=== PATIENT | female | born 1940 | race African-American/Black ===

== ENCOUNTER 2019-04-28 15:12 | Inpatient (IN) | payer OTHER ==
[2019-04-28] MEDS ORDERED: Dextrose 5% in Water 1,000 ML IV PRN (20:41)
[2019-04-28] MEDS ORDERED: Dextrose 50% Abboject 50 ML SYRINGE SLOW IVP PRN (20:41)
[2019-04-28] MEDS ORDERED: Lantus 1000 UNITS/10 ML VIAL SC SCH (21:00)
[2019-04-28] MEDS: Vancomycin HCl 1 GM in Sodium Chloride 0.9% 250 ML 250 ML IVPB SCH (22:21)
[2019-04-28] MEDS: Metoprolol Tartrate 25 MG TAB PO SCH (22:22)
[2019-04-28] MEDS: Lisinopril 5 MG TAB PO SCH (22:22)
[2019-04-28] MEDS: Senokot S 8.6-50 MG TAB PO SCH (22:22)
[2019-04-28] MEDS: Famotidine 20 MG TAB PO SCH (22:23)
[2019-04-29] MEDS ORDERED: Non-Formulary Item 1 EACH (Vancomycin Hcl [Vancomycin Hcl] 1 GM) IVPB SCH (08:00)
[2019-04-29] MEDS: Ferrous Sulfate 325 MG TAB PO SCH (08:46)
[2019-04-29] MEDS: Famotidine 20 MG TAB PO SCH ×2 (08:46→21:50)
[2019-04-29] MEDS: Ascorbic Acid 500 mg Chewable Tablet PO SCH (08:47)
[2019-04-29] MEDS: Aspirin 81 mg Enteric Coated Tablet PO SCH (08:47)
[2019-04-29] MEDS: Folic Acid 1 MG TAB PO SCH (08:47)
[2019-04-29] MEDS: glipiZIDE 5 MG TAB PO SCH (08:48)
[2019-04-29] MEDS: NIFEdipine XL 30 MG TAB PO SCH (08:49)
[2019-04-29] MEDS: Saccharomyces boulardii 250 MG CAP PO SCH (08:50)
[2019-04-29] MEDS: Lisinopril 5 MG TAB PO SCH ×2 (08:50→21:52)
[2019-04-29] MEDS: Multivit, Therapeutic 1 TAB PO SCH (08:50)
[2019-04-29] MEDS: Metoprolol Tartrate 25 MG TAB PO SCH ×2 (08:51→21:51)
[2019-04-29] MEDS: Senokot S 8.6-50 MG TAB PO SCH ×2 (08:52→21:51)
[2019-04-29] MEDS: Lantus 1000 UNITS/10 ML VIAL SC SCH ×2 (08:54→21:52)
[2019-04-29] MEDS: Vancomycin HCl 1 GM in Sodium Chloride 0.9% 250 ML 250 ML IVPB SCH ×2 (10:19→22:15)
[2019-04-29] MEDS ORDERED: HumaLOG 300 UNITS/3 ML VIAL SC PRN ×2 (16:23)
[2019-04-29] MEDS: Acetaminophen 500 MG TAB PO PRN (22:15)
--- NOTE | 2019-04-29 22:55 | HP ---
CHIEF COMPLAINT: Need for IV antibiotics, physical and occupational therapy. HISTORY OF PRESENT ILLNESS: Ms. Jimenez is a 79-year-old female with past medical history of hypertension and diet-controlled diabetes mellitus who presented to [facility] on 04/16/2019 with a complaint of right lower quadrant abdominal pain. She reportedly had an ulcer of her right heel, but had provided wound care for that at home, and subsequently, had noted it to be "healed" about a week prior to the onset of this right lower quadrant abdominal pain, which is essentially why she sought medical attention. The pain was radiating to her back and unrelenting, and she was found to have sepsis, urinary tract infection in the context of the right heel ulcer and uncontrolled diabetes , chronic anemia, and hypertension. Subsequently, the patient had General Surgery Service consultation and debridement of the heel ulcer, which grew MRSA. Her urine culture also grew MRSA and Aerococcus urinae. Infectious Disease and Cardiology were consulted, and she underwent a transesophageal echocardiogram, which showed thickened aortic valve leaflets with a small echogenic mass suggestive of vegetation. She was treated with vancomycin and had a PICC line placed on 04/25 prior to her transfer here. Her plan is to receive IV vancomycin via PICC line with weekly labs at the suggestion of Dr. Barragan through 05/31. In addition, her hospital course was apparently complicated by urinary retention and several voiding trials were performed with ultimately placement of indwelling Islas catheter and will need Urology Service followup as well. The patient denies any complaints today. She denies nausea, vomiting, diarrhea , or constipation. She has chronic anemia, for which she takes iron. She did have melanotic appearing stool earlier per nursing, but is on iron therapy. Prior to her admission, per her history and physical, she has not had a colonoscopy in the past, but had a couple of FIT tests that were negative, thus colonoscopy was not indicated. Regarding her diabetes, the patient had a hemoglobin A1c performed during her hospital stay that was 10.1 on 04/16/2019, and she was placed on oral glipizide, Lantus b.i.d. and is to have Accu-Cheks and a sliding scale. Early this morning, the patient's right heel ulcer was evaluated by Wound Care and felt that Nursing Services could perform dressing changes. During her hospital stay, she also had uncontrolled hypertension and her antihypertensive regimen was adjusted. PAST MEDICAL HISTORY: 1. Hypertension. 2. Type-2 diabetes. 3. Chronic venous stasis of the lower extremities. 4. Sepsis with MRSA bacteremia, UTI, and aortic valve endocarditis, this admission. 5. Urinary retention, status post Islas, this admission. 6. Right heel ulcer, status post debridement, this admission. PAST SURGICAL HISTORY: Denies history of prior surgery. SOCIAL HISTORY: Denies alcohol or illicit drug use. 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 She is followed by primary care physician, Dr. Johnson, in [place]. She ambulates independently prior to admission, although at times does hold on to the soriano for guidance. FAMILY HISTORY: Her mother at the age of 77 and had a history of hypertension. Father at 79 due to old age. Power of district attorney that she would designate is her son, Mr. Carlitos Jimenez. ALLERGIES: NO KNOWN DRUG ALLERGIES. MEDICATIONS: 1. Vitamin C 500 mg p.o. daily. 2. Ecotrin 81 mg p.o. daily. 3. Pepcid 20 mg p.o. b.i.d. 4. Feosol 325 mg p.o. q.a.m. 5. Folvite 1 mg p.o. daily. 6. Glipizide 5 mg p.o. daily a.c. 7. Lantus 10 units subcu b.i.d. 8. Zestril 5 mg p.o. b.i.d. 9. Metoprolol 25 mg p.o. b.i.d. 10. Theragran 1 tab p.o. daily. 11. Procardia XL 60 mg p.o. daily. 12. MiraLAX 17 g p.o. daily p.r.n. constipation. 13. Florastor 250 mg p.o. daily. 14. Senokot-S 2 p.o. b.i.d. 15. Vancomycin 1 g q.12h IV. REVIEW OF SYSTEMS: GENERAL: The patient has not had any recent fever reported. She has had some deconditioning from her hospital stay. HEENT: She is little hard to hearing, but denies any problems with her vision. Her dentition is good. Denies any sore throat, rhinorrhea, postnasal drip, or ear pain. CARDIOVASCULAR: Denies chest pain, palpitations, orthopnea, or PND. RESPIRATORY: Denies shortness of breath, cough, or hemoptysis. ABDOMEN: Denies nausea, vomiting, diarrhea, or constipation. GENITOURINARY: Recent urinary retention with placement of urine Islas, but denies dysuria. No hematuria grossly. HEMATOLOGIC: The patient denies any bleeding. LYMPHATIC: The patient has a history of venous stasis of the lower extremities , but denies any other lymphadenopathy or swelling. PSYCHIATRIC: Denies any history of depression or anxiety. PHYSICAL EXAMINATION: VITAL SIGNS: Temperature 99.4, heart rate 78, blood pressure 134/63, respirations 18, O2 saturation 93% on room air. GENERAL: Well-developed, well-nourished, female, alert and oriented x3, in no acute distress, resting supine in the bed, responsive to questions and appropriate. HEENT: Pupils are equally round and reactive to light and accommodation. Extraocular muscles intact. Nares are patent without discharge. Tongue protrudes in the midline. NECK: Supple without lymphadenopathy, thyromegaly, JVD, or bruit. HEART: Regular rate and rhythm. Normal S1, S2. No murmurs, clicks, rubs, or gallops. LUNGS: Clear to auscultation with good air entry bilaterally. No crackles or wheezes. ABDOMEN: Positive bowel sounds in all 4 quadrants. Soft, nontender, nondistended. No masses, guarding, or rebound tenderness. PICC line to the right AC dressed without surrounding erythema or induration. EXTREMITIES: No cyanosis or clubbing. Venous stasis changes from mid tibia distally with wrinkling of the skin and the right heel wrapped in Kerlix with [place] overlying that. Per wound photo, an approximate 1.8 cm x 1.8 cm wound with surrounding callus to the plantar aspect of the right heel. Nails are dystrophic and elongated bilaterally. SKIN: A very small laceration vs. skin tear at the left pubic bone without surrounding erythema or induration, small amount of skin breakdown at the left abdominal fold, and in the supra-gluteal cleft, see photo for details. LABORATORY DATA: CBC last performed on 04/27: White count 10.8 with 72% neutrophils and 15% lymphocytes, hemoglobin 10.4, hematocrit 32.4, platelets 505. ESR on 04/27 was 130. Hemoglobin A1c on 04/16/2019 was 10.1. On 04/27; sodium 139, potassium 4.4, chloride 103, bicarb 26, BUN 14, creatinine 0.67, glucose 134, calcium 9.6. On 04/16/2019; serum iron 12, which is low; TIBC 266, which is normal; ferritin 195, which is normal. LFTs normal on 04/27. CRP on 04/27 was 11.2. On 04/26; total cholesterol 138, LDL 83, HDL 39, triglycerides 80, B12 of 482, folate 5.3, which is low. Vancomycin trough on 04/27 was 18.2. MICROBIOLOGY DATA: 1. Blood culture from 04/16 from the neck with gram-positive cocci in clusters per the Gram stain. Organism-1 MRSA 2/2 culture sets drawn positive and organism-2 Aerococcus urinae 1/2 culture sets positive. 2. Venous blood right hand culture from 04/16; MRSA 2/2 culture sets positive, sensitive to clindamycin, doxycycline, gentamicin, linezolid, rifampin, tetracycline, Bactrim, vancomycin. 3. Urine culture from 04/16/2019 with MRSA 25 to 50,000 CFU/mL and Aerococcus urinae greater than 100,000 CFU/mL with same sensitivities on the MRSA. 4. Blood culture on 04/17 shows gram-positive cocci in clusters. Organism-1 Staph aureus 2/2 culture sets positive. IMAGING DATA: 1. Chest x-ray on 04/16 with cardiomegaly. 2. Foot x-ray on 04/16, normal. 3. ECG on 04/16, normal sinus rhythm, possible left atrial enlargement, nonspecific ST abnormality. 4. Bilateral lower extremity venous Doppler, negative for DVT on 04/17. 5. Echocardiogram on 04/17; left ventricular ejection fraction 55% to 60% with E/A flow reversal suggestive of diastolic dysfunction. Left atrium mildly dilated. Mild MR. Mildly thickened trileaflet aortic valve with normal excursion. Mild TR. Normal pulmonary artery pressure. 6. On 04/18; arterial Doppler lower extremity with anterior tibial artery not identified in either extremity, which could indicate occlusion bilaterally. Evidence of moderate peripheral vascular disease. 7. Lower extremity MRI on 04/20 with heel ulceration with associated surrounding cellulitis. No large drainable fluid collection is evident. No overt changes of osteomyelitis demonstrated. Subcutaneous emphysema of the lower extremity and foot may reflect lymphedema or changes of cellulitis. Increased T2 signal involving the musculature of the extensor digitorum longus and FHL may be related to the patient's edema or may be related to myositis. Denervation atrophy involving the intrinsic foot musculature on the right. Achilles tendinosis. Thickening of the plantar fascial band and enthesopathic change of the plantar calcaneus suspicious for changes of mild plantar fasciitis. ASSESSMENT AND PLAN: 1. Sepsis/methicillin-resistant Staphylococcus aureus bacteremia and urinary tract infection, aortic valve endocarditis. The patient has been admitted for custodial physical and occupational therapy for deconditioning and prolonged hospital stay with PICC line care and IV vancomycin to be continued through 05/31 with weekly labs. We will fax those to Dr. Barragan for his review. We will have Pharmacy to monitor vancomycin trough and adjust dose p.r.n. We will add Floranex probiotic. 2. Right heel ulcer. Wound Care has evaluated and nursing will perform dressing changes and local wound care. 3. Dystrophic nails. We will get a Podiatry consult while the patient is here. 4. Urinary retention. We will perform Islas care per protocol and have the patient to follow up with the Urology Service as outpatient. 5. Hypertension. The patient's antihypertensive regimen will be continued and adjusted as needed with a goal blood pressure of less than 140/90 due to history of diabetes. 6. Type-2 diabetes. The patient's insulin and oral regimen have been continued. Accu-Cheks have been ordered q.a.c. and at bedtime with 1800-calorie con-carb diet and sliding scale mild in bedtime algorithm. 7. Diastolic dysfunction. The patient is currently on [place] inhibitor and beta-shirin. 8. Melanotic stool. This is likely due to her iron, and we will continue this supplementation and just monitor her H&H. 9. Folate deficiency. The patient's folic acid supplement will be continued while hospitalized. 10. Iron-deficiency anemia. The patient's iron will be continued while hospitalized. 11. Probable peripheral arterial disease per arterial Doppler studies. The patient is currently on aspirin. She did have lipid profile performed, but did not get started on statin therapy presumably secondary to age greater than 75. 12. Prophylaxis. SCDs will be placed, and the patient is currently on Pepcid. 13. Full code status. In the event, she is not able to make her own decisions. She designates her son, Carlitos, as her decision maker. Job ID: [id number] [facility]
[2019-04-30] MEDS: Acetaminophen 500 MG TAB PO PRN ×2 (05:48→13:59)
[2019-04-30] MEDS: Lantus 1000 UNITS/10 ML VIAL SC SCH ×2 (09:16→20:45)
[2019-04-30] MEDS: Lisinopril 5 MG TAB PO SCH ×2 (09:17→20:41)
[2019-04-30] MEDS: Ascorbic Acid 500 mg Chewable Tablet PO SCH (09:17)
[2019-04-30] MEDS: Ferrous Sulfate 325 MG TAB PO SCH (09:17)
[2019-04-30] MEDS: Saccharomyces boulardii 250 MG CAP PO SCH (09:17)
[2019-04-30] MEDS: NIFEdipine XL 30 MG TAB PO SCH (09:21)
[2019-04-30] MEDS: Senokot S 8.6-50 MG TAB PO SCH ×2 (09:21→20:41)
[2019-04-30] MEDS: Aspirin 81 mg Enteric Coated Tablet PO SCH (09:22)
[2019-04-30] MEDS: Famotidine 20 MG TAB PO SCH ×2 (09:22→20:41)
[2019-04-30] MEDS: glipiZIDE 5 MG TAB PO SCH (09:22)
[2019-04-30] MEDS: Metoprolol Tartrate 25 MG TAB PO SCH ×2 (09:22→20:41)
[2019-04-30] MEDS: Folic Acid 1 MG TAB PO SCH (09:22)
[2019-04-30] MEDS: Multivit, Therapeutic 1 TAB PO SCH (09:22)
[2019-04-30 09:33] LABS: Anion Gap 14 mmol/L (10-20); BUN (Urea Nitrogen) 15 mg/dL (9.8-20.1); Calc. Creatinine Clearance 90 mL/min (70-130); Calcium 9.5 mg/dL (7.8-10.44); Carbon Dioxide 26 mmol/L (23-31); Chloride 105 mmol/L (98-107); Estimated GFR-MDRD Greater than 90; Glucose 143 mg/dL (83-110); Potassium 3.6 mmol/L (3.5-5.1); Sodium 141 mmol/L (136-145); Vancomycin, Trough 18.5 ug/mL
[2019-04-30] MEDS: Vancomycin HCl 1 GM in Sodium Chloride 0.9% 250 ML 250 ML IVPB SCH ×2 (10:05→21:02)
[2019-05-01] MEDS: Acetaminophen 500 MG TAB PO PRN ×3 (04:27→13:58)
[2019-05-01] MEDS: Aspirin 81 mg Enteric Coated Tablet PO SCH (08:39)
[2019-05-01] MEDS: glipiZIDE 5 MG TAB PO SCH (08:40)
[2019-05-01] MEDS: NIFEdipine XL 30 MG TAB PO SCH (08:40)
[2019-05-01] MEDS: Senokot S 8.6-50 MG TAB PO SCH ×2 (08:41→20:57)
[2019-05-01] MEDS: Ascorbic Acid 500 mg Chewable Tablet PO SCH (08:41)
[2019-05-01] MEDS: Metoprolol Tartrate 25 MG TAB PO SCH ×2 (08:41→20:56)
[2019-05-01] MEDS: Multivit, Therapeutic 1 TAB PO SCH (08:42)
[2019-05-01] MEDS: Famotidine 20 MG TAB PO SCH ×2 (08:42→20:56)
[2019-05-01] MEDS: Lisinopril 5 MG TAB PO SCH ×2 (08:42→20:57)
[2019-05-01] MEDS: Ferrous Sulfate 325 MG TAB PO SCH (08:42)
[2019-05-01] MEDS: Lantus 1000 UNITS/10 ML VIAL SC SCH ×2 (08:43→20:59)
[2019-05-01] MEDS: Folic Acid 1 MG TAB PO SCH (08:43)
[2019-05-01] MEDS ORDERED: traMADol HCl 50 MG TAB ONE (08:49)
[2019-05-01] MEDS ORDERED: Acetaminophen 325 MG TAB ONE (08:50)
[2019-05-01] MEDS: Vancomycin HCl 1 GM in Sodium Chloride 0.9% 250 ML 250 ML IVPB SCH ×2 (09:50→23:05)
[2019-05-01] MEDS: Saccharomyces boulardii 250 MG CAP PO SCH (09:56)
[2019-05-02] MEDS: Senokot S 8.6-50 MG TAB PO SCH ×2 (09:25→21:27)
[2019-05-02] MEDS: NIFEdipine XL 30 MG TAB PO SCH (09:26)
[2019-05-02] MEDS: Saccharomyces boulardii 250 MG CAP PO SCH (09:26)
[2019-05-02] MEDS: Aspirin 81 mg Enteric Coated Tablet PO SCH (09:26)
[2019-05-02] MEDS: Metoprolol Tartrate 25 MG TAB PO SCH ×2 (09:26→21:27)
[2019-05-02] MEDS: Folic Acid 1 MG TAB PO SCH (09:27)
[2019-05-02] MEDS: Multivit, Therapeutic 1 TAB PO SCH (09:27)
[2019-05-02] MEDS: Lisinopril 5 MG TAB PO SCH ×2 (09:27→21:27)
[2019-05-02] MEDS: Ferrous Sulfate 325 MG TAB PO SCH (09:27)
[2019-05-02] MEDS: glipiZIDE 5 MG TAB PO SCH (09:28)
[2019-05-02] MEDS: Famotidine 20 MG TAB PO SCH ×2 (09:28→21:27)
[2019-05-02] MEDS: Lantus 1000 UNITS/10 ML VIAL SC SCH ×2 (09:28→21:28)
[2019-05-02] MEDS: Ascorbic Acid 500 mg Chewable Tablet PO SCH (09:28)
[2019-05-02] MEDS: Vancomycin HCl 1 GM in Sodium Chloride 0.9% 250 ML 250 ML IVPB SCH ×2 (09:37→21:28)
[2019-05-02] MEDS: Acetaminophen 500 MG TAB PO PRN ×2 (09:45→22:53)
[2019-05-03 00:02] LABS: Chlamydia by PCR Not Detected (NotDetected); GC by PCR Not Detected (NotDetected)
[2019-05-03] MEDS: Lantus 1000 UNITS/10 ML VIAL SC SCH ×2 (08:22→20:27)
[2019-05-03] MEDS: Aspirin 81 mg Enteric Coated Tablet PO SCH (08:24)
[2019-05-03] MEDS: Ascorbic Acid 500 mg Chewable Tablet PO SCH (08:25)
[2019-05-03] MEDS: Saccharomyces boulardii 250 MG CAP PO SCH (08:25)
[2019-05-03] MEDS: Famotidine 20 MG TAB PO SCH ×2 (08:25→20:16)
[2019-05-03] MEDS: NIFEdipine XL 30 MG TAB PO SCH (08:26)
[2019-05-03] MEDS: Senokot S 8.6-50 MG TAB PO SCH ×2 (08:26→20:16)
[2019-05-03] MEDS: glipiZIDE 5 MG TAB PO SCH (08:27)
[2019-05-03] MEDS: Folic Acid 1 MG TAB PO SCH (08:27)
[2019-05-03] MEDS: Ferrous Sulfate 325 MG TAB PO SCH (08:27)
[2019-05-03] MEDS: Lisinopril 5 MG TAB PO SCH ×2 (08:27→20:16)
[2019-05-03] MEDS: Multivit, Therapeutic 1 TAB PO SCH (08:27)
[2019-05-03] MEDS: Metoprolol Tartrate 25 MG TAB PO SCH ×2 (08:27→20:16)
[2019-05-03 09:31] LABS: Vancomycin, Trough 22.9 ug/mL
[2019-05-03] MEDS: Vancomycin HCl 750 MG in Sodium Chloride 0.9% 250 ML 250 ML IVPB SCH ×2 (11:05→23:11)
[2019-05-03] MEDS: Acetaminophen 500 MG TAB PO PRN ×2 (11:26→23:39)
[2019-05-03] MEDS: Vancomycin HCl 1 GM in Sodium Chloride 0.9% 250 ML 250 ML IVPB SCH (11:29)
[2019-05-04 06:34] LABS: ALT (SGPT) 23 U/L (8-55); AST (SGOT) 20 U/L (5-34); Alkaline Phosphatase 96 U/L (40-150); Anion Gap 14 mmol/L (10-20); BUN (Urea Nitrogen) 9 mg/dL (9.8-20.1); Bilirubin, Total 0.4 mg/dL (0.2-1.2); Calc. Creatinine Clearance 97 mL/min (70-130); Calcium 9.5 mg/dL (7.8-10.44); Carbon Dioxide 26 mmol/L (23-31); Chloride 107 mmol/L (98-107); Estimated GFR-MDRD Greater than 90; Globulin 3.7 g/dL (2.4-3.5); Glucose 92 mg/dL (83-110); Potassium 3.7 mmol/L (3.5-5.1); Protein, Total 6.7 g/dL (6.0-8.3); Sodium 143 mmol/L (136-145)
[2019-05-04 06:44] LABS: Anisocytosis SLIGHT = 6-15 cells (100X) (0-5/hpf); Eosinophils 5 % (0-10); Hypochromia SLIGHT = 6-15 cells (100X) (0-5/hpf); Lymphocytes 20 % (21-51); MDiff Complete? YES; Mean Corpuscular HGB CONC 30.3 g/dL (32.0-36.0); Mean Corpuscular Hemoglobin 22.5 pg (27.0-31.0); Mean Corpuscular Volume 74.3 fL (78.0-98.0); Microcytosis SLIGHT = 6-15 cells (100X) (0-5/hpf); Monocytes 7 % (0-10); Neutrophil 68 % (42-75); Platelet Count 436 thou/uL (130-400); Platelet Morphology Comment Appears Increased; RBC Distribution Width 14.5 % (11.5-14.5); Red Blood Cell (RBC) Count 3.98 mill/uL (4.20-5.40); White Blood Cell (WBC) Count 7.2 thou/uL (4.8-10.8)
[2019-05-04] MEDS: Lisinopril 5 MG TAB PO SCH ×2 (09:21→21:10)
[2019-05-04] MEDS: Ascorbic Acid 500 mg Chewable Tablet PO SCH (09:22)
[2019-05-04] MEDS: NIFEdipine XL 30 MG TAB PO SCH (09:22)
[2019-05-04] MEDS: Multivit, Therapeutic 1 TAB PO SCH (09:24)
[2019-05-04] MEDS: Aspirin 81 mg Enteric Coated Tablet PO SCH (09:24)
[2019-05-04] MEDS: Metoprolol Tartrate 25 MG TAB PO SCH ×2 (09:24→21:11)
[2019-05-04] MEDS: glipiZIDE 5 MG TAB PO SCH (09:24)
[2019-05-04] MEDS: Senokot S 8.6-50 MG TAB PO SCH ×2 (09:24→21:11)
[2019-05-04] MEDS: Ferrous Sulfate 325 MG TAB PO SCH (09:24)
[2019-05-04] MEDS: Saccharomyces boulardii 250 MG CAP PO SCH (09:24)
[2019-05-04] MEDS: Famotidine 20 MG TAB PO SCH ×2 (09:24→21:10)
[2019-05-04] MEDS: Lantus 1000 UNITS/10 ML VIAL SC SCH ×2 (09:27→21:10)
[2019-05-04] MEDS: Folic Acid 1 MG TAB PO SCH (09:29)
[2019-05-04] MEDS: Acetaminophen 500 MG TAB PO PRN (09:36)
[2019-05-04] MEDS: Vancomycin HCl 750 MG in Sodium Chloride 0.9% 250 ML 250 ML IVPB SCH ×2 (11:22→22:50)
[2019-05-04 19:46] LABS: CRP (Inflammatory) 10.38 mg/dL (= or < 0.5)
[2019-05-04 22:25] LABS: Vancomycin, Trough 18.1 ug/mL
[2019-05-05] MEDS: Lantus 1000 UNITS/10 ML VIAL SC SCH ×2 (09:41→21:01)
[2019-05-05] MEDS: Saccharomyces boulardii 250 MG CAP PO SCH (09:43)
[2019-05-05] MEDS: NIFEdipine XL 30 MG TAB PO SCH (09:43)
[2019-05-05] MEDS: Multivit, Therapeutic 1 TAB PO SCH (09:44)
[2019-05-05] MEDS: Senokot S 8.6-50 MG TAB PO SCH ×2 (09:44→21:04)
[2019-05-05] MEDS: Ferrous Sulfate 325 MG TAB PO SCH (09:44)
[2019-05-05] MEDS: Famotidine 20 MG TAB PO SCH ×2 (09:44→21:04)
[2019-05-05] MEDS: glipiZIDE 5 MG TAB PO SCH (09:45)
[2019-05-05] MEDS: Metoprolol Tartrate 25 MG TAB PO SCH ×2 (09:45→21:20)
[2019-05-05] MEDS: Lisinopril 5 MG TAB PO SCH ×2 (09:45→21:04)
[2019-05-05] MEDS: Acetaminophen 500 MG TAB PO PRN (09:45)
[2019-05-05] MEDS: Aspirin 81 mg Enteric Coated Tablet PO SCH (09:45)
[2019-05-05] MEDS: Ascorbic Acid 500 mg Chewable Tablet PO SCH (09:45)
[2019-05-05] MEDS: Folic Acid 1 MG TAB PO SCH (09:46)
[2019-05-05] MEDS: Vancomycin HCl 750 MG in Sodium Chloride 0.9% 250 ML 250 ML IVPB SCH ×2 (11:16→22:43)
[2019-05-06] MEDS: Aspirin 81 mg Enteric Coated Tablet PO SCH (09:12)
[2019-05-06] MEDS: Famotidine 20 MG TAB PO SCH ×2 (09:12→21:36)
[2019-05-06] MEDS: Ferrous Sulfate 325 MG TAB PO SCH (09:12)
[2019-05-06] MEDS: glipiZIDE 5 MG TAB PO SCH (09:12)
[2019-05-06] MEDS: Ascorbic Acid 500 mg Chewable Tablet PO SCH (09:12)
[2019-05-06] MEDS: NIFEdipine XL 30 MG TAB PO SCH (09:12)
[2019-05-06] MEDS: Multivit, Therapeutic 1 TAB PO SCH (09:12)
[2019-05-06] MEDS: Saccharomyces boulardii 250 MG CAP PO SCH (09:12)
[2019-05-06] MEDS: Folic Acid 1 MG TAB PO SCH (09:14)
[2019-05-06] MEDS: Lisinopril 5 MG TAB PO SCH ×2 (09:14→21:36)
[2019-05-06] MEDS: Naproxen 500 MG TAB PO SCH ×2 (09:15→17:50)
[2019-05-06] MEDS: Lantus 1000 UNITS/10 ML VIAL SC SCH ×2 (09:15→21:39)
[2019-05-06] MEDS: Senokot S 8.6-50 MG TAB PO SCH ×2 (09:15→21:36)
[2019-05-06] MEDS: Metoprolol Tartrate 25 MG TAB PO SCH ×2 (09:15→21:36)
[2019-05-06 10:13] LABS: Vancomycin, Trough 17.4 ug/mL
[2019-05-06] MEDS: Vancomycin HCl 750 MG in Sodium Chloride 0.9% 250 ML 250 ML IVPB SCH ×2 (10:58→22:40)
[2019-05-06] MEDS: HYDROcodone/Acetaminophen 5/325 mg Tablet PO PRN ×2 (15:41→21:37)
[2019-05-07] MEDS: Ferrous Sulfate 325 MG TAB PO SCH (08:55)
[2019-05-07] MEDS: Multivit, Therapeutic 1 TAB PO SCH (08:56)
[2019-05-07] MEDS: NIFEdipine XL 30 MG TAB PO SCH (08:56)
[2019-05-07] MEDS: glipiZIDE 5 MG TAB PO SCH (08:56)
[2019-05-07] MEDS: Aspirin 81 mg Enteric Coated Tablet PO SCH (08:56)
[2019-05-07] MEDS: Senokot S 8.6-50 MG TAB PO SCH ×2 (08:56→21:07)
[2019-05-07] MEDS: Ascorbic Acid 500 mg Chewable Tablet PO SCH (08:56)
[2019-05-07] MEDS: Folic Acid 1 MG TAB PO SCH (08:56)
[2019-05-07] MEDS: Metoprolol Tartrate 25 MG TAB PO SCH ×2 (08:57→21:07)
[2019-05-07] MEDS: Famotidine 20 MG TAB PO SCH ×2 (08:57→21:07)
[2019-05-07] MEDS: Naproxen 500 MG TAB PO SCH ×2 (08:57→17:42)
[2019-05-07] MEDS: Lisinopril 5 MG TAB PO SCH ×2 (08:57→21:07)
[2019-05-07] MEDS: Saccharomyces boulardii 250 MG CAP PO SCH (08:57)
[2019-05-07] MEDS: Lantus 1000 UNITS/10 ML VIAL SC SCH ×2 (08:58→21:06)
[2019-05-07] MEDS: Vancomycin HCl 750 MG in Sodium Chloride 0.9% 250 ML 250 ML IVPB SCH ×2 (11:19→23:08)
[2019-05-07] MEDS: HYDROcodone/Acetaminophen 5/325 mg Tablet PO PRN (13:08)
[2019-05-07 22:34] LABS: Vancomycin, Trough 18.7 ug/mL
[2019-05-08] MEDS: HYDROcodone/Acetaminophen 5/325 mg Tablet PO PRN ×3 (01:56→23:02)
[2019-05-08] MEDS: Lantus 1000 UNITS/10 ML VIAL SC SCH ×2 (08:58→21:08)
[2019-05-08] MEDS: Saccharomyces boulardii 250 MG CAP PO SCH (08:59)
[2019-05-08] MEDS: Multivit, Therapeutic 1 TAB PO SCH (09:00)
[2019-05-08] MEDS: Folic Acid 1 MG TAB PO SCH (09:00)
[2019-05-08] MEDS: Aspirin 81 mg Enteric Coated Tablet PO SCH (09:00)
[2019-05-08] MEDS: Ascorbic Acid 500 mg Chewable Tablet PO SCH (09:00)
[2019-05-08] MEDS: Famotidine 20 MG TAB PO SCH ×2 (09:00→21:08)
[2019-05-08] MEDS: Senokot S 8.6-50 MG TAB PO SCH ×2 (09:01→21:09)
[2019-05-08] MEDS: Naproxen 500 MG TAB PO SCH ×2 (09:01→16:37)
[2019-05-08] MEDS: Lisinopril 5 MG TAB PO SCH ×2 (09:01→21:09)
[2019-05-08] MEDS: NIFEdipine XL 30 MG TAB PO SCH (09:02)
[2019-05-08] MEDS: glipiZIDE 5 MG TAB PO SCH (09:02)
[2019-05-08] MEDS: Metoprolol Tartrate 25 MG TAB PO SCH ×2 (09:02→21:11)
[2019-05-08] MEDS: Ferrous Sulfate 325 MG TAB PO SCH (09:02)
[2019-05-08] MEDS: Vancomycin HCl 750 MG in Sodium Chloride 0.9% 250 ML 250 ML IVPB SCH ×2 (11:10→23:04)
[2019-05-09] MEDS: Famotidine 20 MG TAB PO SCH ×2 (09:02→20:28)
[2019-05-09] MEDS: Ferrous Sulfate 325 MG TAB PO SCH (09:02)
[2019-05-09] MEDS: Naproxen 500 MG TAB PO SCH ×2 (09:03→16:49)
[2019-05-09] MEDS: Aspirin 81 mg Enteric Coated Tablet PO SCH (09:03)
[2019-05-09] MEDS: Senokot S 8.6-50 MG TAB PO SCH ×2 (09:03→20:28)
[2019-05-09] MEDS: Saccharomyces boulardii 250 MG CAP PO SCH (09:04)
[2019-05-09] MEDS: Multivit, Therapeutic 1 TAB PO SCH (09:04)
[2019-05-09] MEDS: NIFEdipine XL 30 MG TAB PO SCH (09:05)
[2019-05-09] MEDS: Folic Acid 1 MG TAB PO SCH (09:05)
[2019-05-09] MEDS: glipiZIDE 5 MG TAB PO SCH (09:05)
[2019-05-09] MEDS: Ascorbic Acid 500 mg Chewable Tablet PO SCH (09:05)
[2019-05-09] MEDS: Metoprolol Tartrate 25 MG TAB PO SCH ×2 (09:06→20:30)
[2019-05-09] MEDS: Lantus 1000 UNITS/10 ML VIAL SC SCH ×2 (09:06→20:27)
[2019-05-09] MEDS: Lisinopril 5 MG TAB PO SCH (09:06)
[2019-05-09] MEDS: Vancomycin HCl 750 MG in Sodium Chloride 0.9% 250 ML 250 ML IVPB SCH ×2 (11:06→22:28)
[2019-05-09] MEDS: HYDROcodone/Acetaminophen 5/325 mg Tablet PO PRN (13:04)
[2019-05-09] MEDS: Polyethylene Glycol 3350 17 GM Packet PO PRN (20:27)
[2019-05-09] MEDS: Lisinopril 10 MG TAB PO SCH (20:28)
[2019-05-10] MEDS: Ferrous Sulfate 325 MG TAB PO SCH (07:40)
[2019-05-10] MEDS: Naproxen 500 MG TAB PO SCH ×2 (07:40→17:37)
[2019-05-10] MEDS: glipiZIDE 5 MG TAB PO SCH (07:40)
[2019-05-10] MEDS: Folic Acid 1 MG TAB PO SCH (08:52)
[2019-05-10] MEDS: Saccharomyces boulardii 250 MG CAP PO SCH (08:52)
[2019-05-10] MEDS: Famotidine 20 MG TAB PO SCH ×2 (08:52→20:08)
[2019-05-10] MEDS: Ascorbic Acid 500 mg Chewable Tablet PO SCH (08:52)
[2019-05-10] MEDS: Senokot S 8.6-50 MG TAB PO SCH ×2 (08:53→20:08)
[2019-05-10] MEDS: Aspirin 81 mg Enteric Coated Tablet PO SCH (08:53)
[2019-05-10] MEDS: Lisinopril 10 MG TAB PO SCH ×2 (08:53→20:08)
[2019-05-10] MEDS: Multivit, Therapeutic 1 TAB PO SCH (08:53)
[2019-05-10] MEDS: NIFEdipine XL 30 MG TAB PO SCH (08:54)
[2019-05-10] MEDS: Metoprolol Tartrate 25 MG TAB PO SCH ×2 (08:54→20:08)
[2019-05-10] MEDS: Lantus 1000 UNITS/10 ML VIAL SC SCH ×2 (08:54→20:10)
[2019-05-10] MEDS: Vancomycin HCl 750 MG in Sodium Chloride 0.9% 250 ML 250 ML IVPB SCH ×2 (11:05→23:00)
[2019-05-10] MEDS: HYDROcodone/Acetaminophen 5/325 mg Tablet PO PRN (13:35)
[2019-05-10] MEDS ORDERED: Vancomycin HCl 750 MG VIAL ONE (22:27)
[2019-05-11] MEDS ORDERED: Aspirin 81 mg Enteric Coated Tablet ONE (07:29)
[2019-05-11] MEDS ORDERED: Ferrous Sulfate 325 MG TAB ONE (07:30)
[2019-05-11] MEDS ORDERED: Saccharomyces boulardii 250 MG CAP ONE (07:30)
[2019-05-11] MEDS ORDERED: Folic Acid 1 MG TAB ONE (07:32)
[2019-05-11] MEDS ORDERED: glipiZIDE 5 MG TAB ONE (07:32)
[2019-05-11] MEDS ORDERED: Metoprolol Tartrate 25 MG TAB ONE (07:34)
[2019-05-11] MEDS ORDERED: Famotidine 20 MG TAB ONE (07:35)
[2019-05-11] MEDS ORDERED: NIFEdipine XL 30 MG TAB ONE (07:35)
[2019-05-11] MEDS ORDERED: Naproxen 500 MG TAB ONE (07:35)
[2019-05-11] MEDS ORDERED: Senokot S 8.6-50 MG TAB ONE (07:36)
[2019-05-11] MEDS ORDERED: Multivit, Therapeutic 1 TAB ONE (07:37)
[2019-05-11] MEDS ORDERED: Ascorbic Acid 500 mg Chewable Tablet ONE (07:37)
[2019-05-11] MEDS ORDERED: Lisinopril 20 MG TAB ONE (07:39)
[2019-05-11] MEDS: Lisinopril 10 MG TAB PO SCH ×2 (08:30→21:31)
[2019-05-11] MEDS: Lantus 1000 UNITS/10 ML VIAL SC SCH ×2 (08:40→21:32)
[2019-05-11] MEDS: Famotidine 20 MG TAB PO SCH ×2 (08:42→21:31)
[2019-05-11] MEDS: glipiZIDE 5 MG TAB PO SCH (08:43)
[2019-05-11] MEDS: Saccharomyces boulardii 250 MG CAP PO SCH (08:43)
[2019-05-11] MEDS: Folic Acid 1 MG TAB PO SCH (08:43)
[2019-05-11] MEDS: Metoprolol Tartrate 25 MG TAB PO SCH ×2 (08:43→21:32)
[2019-05-11] MEDS: Ascorbic Acid 500 mg Chewable Tablet PO SCH (08:43)
[2019-05-11] MEDS: HYDROcodone/Acetaminophen 5/325 mg Tablet PO PRN (08:44)
[2019-05-11] MEDS: NIFEdipine XL 30 MG TAB PO SCH (08:45)
[2019-05-11] MEDS: Multivit, Therapeutic 1 TAB PO SCH (08:45)
[2019-05-11] MEDS: Ferrous Sulfate 325 MG TAB PO SCH (08:46)
[2019-05-11] MEDS: Naproxen 500 MG TAB PO SCH ×2 (08:46→17:14)
[2019-05-11] MEDS: Aspirin 81 mg Enteric Coated Tablet PO SCH (08:46)
[2019-05-11] MEDS: Senokot S 8.6-50 MG TAB PO SCH ×2 (08:46→21:32)
[2019-05-11 08:48] LABS: Anion Gap 14 mmol/L (10-20); BUN (Urea Nitrogen) 12 mg/dL (9.8-20.1); Bilirubin, Total 0.3 mg/dL (0.2-1.2); Calc. Creatinine Clearance 98 mL/min (70-130); Calcium 9.7 mg/dL (7.8-10.44); Carbon Dioxide 25 mmol/L (23-31); Chloride 108 mmol/L (98-107); Estimated GFR-MDRD Greater than 90; Glucose 82 mg/dL (83-110); Potassium 3.8 mmol/L (3.5-5.1); Sodium 143 mmol/L (136-145)
[2019-05-11 08:49] LABS: ALT (SGPT) 38 U/L (8-55); AST (SGOT) 23 U/L (5-34); Albumin 3.1 g/dL (3.4-4.8); Alkaline Phosphatase 170 U/L (40-150); Globulin 3.9 g/dL (2.4-3.5)
[2019-05-11 08:51] LABS: Hemoglobin 9.8 g/dL (12.0-16.0); Mean Corpuscular HGB CONC 30.1 g/dL (32.0-36.0); Mean Corpuscular Hemoglobin 22.5 pg (27.0-31.0); Mean Corpuscular Volume 74.7 fL (78.0-98.0); Red Blood Cell (RBC) Count 4.37 mill/uL (4.20-5.40); White Blood Cell (WBC) Count 3.8 thou/uL (4.8-10.8)
[2019-05-11 08:52] LABS: Band 2 % (5-11); MDiff Complete? YES; Manual Diff?? YES; Mean Platelet Volume 5.9 fL (7.4-10.4); Neutrophil 56 % (42-75); Platelet Count 385 thou/uL (130-400); RBC Distribution Width 15.3 % (11.5-14.5)
[2019-05-11 08:53] LABS: Eosinophils 5 % (0-10); Hypochromia SLIGHT = 6-15 cells (100X) (0-5/hpf); Lymphocytes 21 % (21-51); Microcytosis SLIGHT = 6-15 cells (100X) (0-5/hpf); Monocytes 16 % (0-10)
[2019-05-11] MEDS: Vancomycin HCl 750 MG in Sodium Chloride 0.9% 250 ML 250 ML IVPB SCH ×2 (11:52→23:01)
[2019-05-11] MEDS: Acetaminophen 500 MG TAB PO PRN (13:36)
[2019-05-11] MEDS: Polyethylene Glycol 3350 17 GM Packet PO PRN (21:30)
[2019-05-12 05:57] LABS: CRP (Inflammatory) 10.65 mg/dL (= or < 0.5)
[2019-05-12] MEDS: NIFEdipine XL 30 MG TAB PO SCH (09:14)
[2019-05-12] MEDS: Ascorbic Acid 500 mg Chewable Tablet PO SCH (09:14)
[2019-05-12] MEDS: Naproxen 500 MG TAB PO SCH ×2 (09:14→16:36)
[2019-05-12] MEDS: Senokot S 8.6-50 MG TAB PO SCH ×2 (09:16→20:26)
[2019-05-12] MEDS: Saccharomyces boulardii 250 MG CAP PO SCH (09:16)
[2019-05-12] MEDS: Ferrous Sulfate 325 MG TAB PO SCH (09:16)
[2019-05-12] MEDS: Multivit, Therapeutic 1 TAB PO SCH (09:16)
[2019-05-12] MEDS: Aspirin 81 mg Enteric Coated Tablet PO SCH (09:16)
[2019-05-12] MEDS: Famotidine 20 MG TAB PO SCH ×2 (09:16→20:26)
[2019-05-12] MEDS: HYDROcodone/Acetaminophen 5/325 mg Tablet PO PRN ×2 (09:17→20:24)
[2019-05-12] MEDS: Folic Acid 1 MG TAB PO SCH (09:17)
[2019-05-12] MEDS: glipiZIDE 5 MG TAB PO SCH (09:17)
[2019-05-12] MEDS: Metoprolol Tartrate 25 MG TAB PO SCH ×2 (09:17→20:28)
[2019-05-12] MEDS: Lisinopril 10 MG TAB PO SCH ×2 (09:17→20:27)
[2019-05-12] MEDS: Lantus 1000 UNITS/10 ML VIAL SC SCH ×2 (09:20→20:31)
[2019-05-12] MEDS: Vancomycin HCl 750 MG in Sodium Chloride 0.9% 250 ML 250 ML IVPB SCH ×2 (11:00→23:13)
[2019-05-12] MEDS ORDERED: Bisacodyl 10 MG SUPP PR PRN (12:08)
[2019-05-12] MEDS: Acetaminophen 500 MG TAB PO PRN (14:36)
[2019-05-12] MEDS: Polyethylene Glycol 3350 17 GM Packet PO PRN (20:31)
[2019-05-13] MEDS: glipiZIDE 5 MG TAB PO SCH (07:56)
[2019-05-13] MEDS: Ferrous Sulfate 325 MG TAB PO SCH (07:56)
[2019-05-13] MEDS: Naproxen 500 MG TAB PO SCH ×2 (07:57→16:43)
[2019-05-13] MEDS: HYDROcodone/Acetaminophen 5/325 mg Tablet PO PRN (08:21)
[2019-05-13] MEDS: Lisinopril 10 MG TAB PO SCH ×2 (09:12→20:44)
[2019-05-13] MEDS: NIFEdipine XL 30 MG TAB PO SCH (09:12)
[2019-05-13] MEDS: Aspirin 81 mg Enteric Coated Tablet PO SCH (09:13)
[2019-05-13] MEDS: Saccharomyces boulardii 250 MG CAP PO SCH (09:13)
[2019-05-13] MEDS: Ascorbic Acid 500 mg Chewable Tablet PO SCH (09:13)
[2019-05-13] MEDS: Metoprolol Tartrate 25 MG TAB PO SCH ×2 (09:13→20:44)
[2019-05-13] MEDS: Multivit, Therapeutic 1 TAB PO SCH (09:13)
[2019-05-13] MEDS: Famotidine 20 MG TAB PO SCH ×2 (09:13→20:41)
[2019-05-13] MEDS: Folic Acid 1 MG TAB PO SCH (09:13)
[2019-05-13] MEDS: Senokot S 8.6-50 MG TAB PO SCH ×2 (09:17→20:41)
[2019-05-13] MEDS: Lantus 1000 UNITS/10 ML VIAL SC SCH ×2 (09:20→20:46)
[2019-05-13] MEDS: Vancomycin HCl 750 MG in Sodium Chloride 0.9% 250 ML 250 ML IVPB SCH ×2 (11:29→23:21)
[2019-05-14] MEDS: Naproxen 500 MG TAB PO SCH ×2 (08:07→16:52)
[2019-05-14] MEDS: glipiZIDE 5 MG TAB PO SCH (08:07)
[2019-05-14] MEDS: Ferrous Sulfate 325 MG TAB PO SCH (08:07)
[2019-05-14] MEDS: HYDROcodone/Acetaminophen 5/325 mg Tablet PO PRN ×2 (08:08→21:14)
[2019-05-14] MEDS: Famotidine 20 MG TAB PO SCH ×2 (09:14→21:02)
[2019-05-14] MEDS: NIFEdipine XL 30 MG TAB PO SCH (09:14)
[2019-05-14] MEDS: Multivit, Therapeutic 1 TAB PO SCH (09:14)
[2019-05-14] MEDS: Saccharomyces boulardii 250 MG CAP PO SCH (09:14)
[2019-05-14] MEDS: Ascorbic Acid 500 mg Chewable Tablet PO SCH (09:15)
[2019-05-14] MEDS: Lisinopril 10 MG TAB PO SCH ×2 (09:15→21:03)
[2019-05-14] MEDS: Folic Acid 1 MG TAB PO SCH (09:15)
[2019-05-14] MEDS: Aspirin 81 mg Enteric Coated Tablet PO SCH (09:15)
[2019-05-14] MEDS: Metoprolol Tartrate 25 MG TAB PO SCH ×2 (09:15→21:03)
[2019-05-14] MEDS: Lantus 1000 UNITS/10 ML VIAL SC SCH ×2 (09:30→21:04)
[2019-05-14 10:15] LABS: Vancomycin, Trough 20.5 ug/mL
[2019-05-14] MEDS: Senokot S 8.6-50 MG TAB PO SCH ×2 (11:33→21:02)
[2019-05-14] MEDS: Vancomycin HCl 750 MG in Sodium Chloride 0.9% 250 ML 250 ML IVPB SCH ×2 (11:34→22:28)
[2019-05-14] MEDS: Acetaminophen 500 MG TAB PO PRN (23:10)
[2019-05-15] MEDS: Acetaminophen 500 MG TAB PO PRN (04:57)
[2019-05-15] MEDS: Lantus 1000 UNITS/10 ML VIAL SC SCH ×2 (09:00→20:59)
[2019-05-15] MEDS: Polyethylene Glycol 3350 17 GM Packet PO PRN (09:04)
[2019-05-15] MEDS: Multivit, Therapeutic 1 TAB PO SCH (09:06)
[2019-05-15] MEDS: Ascorbic Acid 500 mg Chewable Tablet PO SCH (09:07)
[2019-05-15] MEDS: Senokot S 8.6-50 MG TAB PO SCH ×2 (09:07→20:58)
[2019-05-15] MEDS: Ferrous Sulfate 325 MG TAB PO SCH (09:07)
[2019-05-15] MEDS: NIFEdipine XL 30 MG TAB PO SCH (09:08)
[2019-05-15] MEDS: HYDROcodone/Acetaminophen 5/325 mg Tablet PO PRN ×2 (09:09→15:55)
[2019-05-15] MEDS: Lisinopril 10 MG TAB PO SCH ×2 (09:10→20:58)
[2019-05-15] MEDS: glipiZIDE 5 MG TAB PO SCH (09:10)
[2019-05-15] MEDS: Naproxen 500 MG TAB PO SCH ×2 (09:11→17:21)
[2019-05-15] MEDS: Famotidine 20 MG TAB PO SCH ×2 (09:11→20:56)
[2019-05-15] MEDS: Saccharomyces boulardii 250 MG CAP PO SCH (09:11)
[2019-05-15] MEDS: Folic Acid 1 MG TAB PO SCH (09:11)
[2019-05-15] MEDS: Metoprolol Tartrate 25 MG TAB PO SCH ×2 (09:12→20:59)
[2019-05-15] MEDS: Aspirin 81 mg Enteric Coated Tablet PO SCH (09:12)
[2019-05-15] MEDS: Vancomycin HCl 750 MG in Sodium Chloride 0.9% 250 ML 250 ML IVPB SCH ×2 (11:29→23:26)
[2019-05-15 22:23] LABS: Vancomycin, Trough 21.8 ug/mL
[2019-05-16] MEDS: HYDROcodone/Acetaminophen 5/325 mg Tablet PO PRN (07:03)
[2019-05-16] MEDS: Lantus 1000 UNITS/10 ML VIAL SC SCH ×2 (08:21→20:51)
[2019-05-16] MEDS: Lisinopril 10 MG TAB PO SCH ×2 (08:23→20:53)
[2019-05-16] MEDS: NIFEdipine XL 30 MG TAB PO SCH (08:23)
[2019-05-16] MEDS: Senokot S 8.6-50 MG TAB PO SCH ×2 (08:23→20:52)
[2019-05-16] MEDS: Multivit, Therapeutic 1 TAB PO SCH (08:24)
[2019-05-16] MEDS: Metoprolol Tartrate 25 MG TAB PO SCH ×2 (08:24→20:53)
[2019-05-16] MEDS: glipiZIDE 5 MG TAB PO SCH (08:24)
[2019-05-16] MEDS: Naproxen 500 MG TAB PO SCH ×2 (08:24→18:04)
[2019-05-16] MEDS: Folic Acid 1 MG TAB PO SCH (08:24)
[2019-05-16] MEDS: Saccharomyces boulardii 250 MG CAP PO SCH (08:24)
[2019-05-16] MEDS: Aspirin 81 mg Enteric Coated Tablet PO SCH (08:24)
[2019-05-16] MEDS: Ferrous Sulfate 325 MG TAB PO SCH (08:25)
[2019-05-16] MEDS: Ascorbic Acid 500 mg Chewable Tablet PO SCH (08:25)
[2019-05-16] MEDS: Famotidine 20 MG TAB PO SCH ×2 (08:25→20:52)
[2019-05-16] MEDS: Polyethylene Glycol 3350 17 GM Packet PO PRN (08:31)
[2019-05-16] MEDS: Vancomycin HCl 750 MG in Sodium Chloride 0.9% 250 ML 250 ML IVPB SCH ×2 (11:58→22:31)
[2019-05-16] MEDS: Acetaminophen ER (8hr) 650 MG TAB PO SCH (20:53)
[2019-05-17] MEDS: HYDROcodone/Acetaminophen 10/325 mg Tablet PO PRN ×2 (06:35→14:17)
[2019-05-17] MEDS: Lantus 1000 UNITS/10 ML VIAL SC SCH ×2 (09:10→22:40)
[2019-05-17] MEDS: Aspirin 81 mg Enteric Coated Tablet PO SCH (09:12)
[2019-05-17] MEDS: Saccharomyces boulardii 250 MG CAP PO SCH (09:12)
[2019-05-17] MEDS: Acetaminophen ER (8hr) 650 MG TAB PO SCH ×2 (09:12→22:39)
[2019-05-17] MEDS: Famotidine 20 MG TAB PO SCH ×2 (09:13→22:40)
[2019-05-17] MEDS: Folic Acid 1 MG TAB PO SCH (09:13)
[2019-05-17] MEDS: NIFEdipine XL 30 MG TAB PO SCH (09:13)
[2019-05-17] MEDS: Senokot S 8.6-50 MG TAB PO SCH ×2 (09:13→22:38)
[2019-05-17] MEDS: Metoprolol Tartrate 25 MG TAB PO SCH ×2 (09:13→22:40)
[2019-05-17] MEDS: Ferrous Sulfate 325 MG TAB PO SCH (09:14)
[2019-05-17] MEDS: Ascorbic Acid 500 mg Chewable Tablet PO SCH (09:15)
[2019-05-17] MEDS: Naproxen 500 MG TAB PO SCH ×2 (09:15→16:31)
[2019-05-17] MEDS: glipiZIDE 5 MG TAB PO SCH (09:15)
[2019-05-17] MEDS: Multivit, Therapeutic 1 TAB PO SCH (09:16)
[2019-05-17] MEDS: Lisinopril 10 MG TAB PO SCH ×2 (09:16→22:39)
[2019-05-17] MEDS: Vancomycin HCl 750 MG in Sodium Chloride 0.9% 250 ML 250 ML IVPB SCH ×2 (11:09→22:59)
--- NOTE | 2019-05-17 22:38 | RAD ---
LUMBAR SPINE 05/17/19 AP and lateral views show no acute fracture or significant disc space narrowing. Anterior osteophytes are seen at many of the levels in the lumbar spine and the low thoracic spine. In the lumbar region, they are particularly prominent at the anterior superior corner of L5. There is a little irregularit y of the superior end plate of L5. Bony ossicles seen at the tips of the spinous processes of L4 and L5 may either be due to old injuries or they could be developmental in nature. An incidental finding are multiple large popcorn type calcifications in the pelvis consistent with calcified uterine fibroi ds. The largest is over 8 cm in size. IMPRESSION: 1. Mild to moderate degenerative changes spread throughout the spine. 2. No acute bony findings. 3. Very large calcified uterine fibroids. POS: HOME
[2019-05-18 05:37] LABS: ALT (SGPT) 21 U/L (8-55); AST (SGOT) 17 U/L (5-34); Albumin 3.3 g/dL (3.4-4.8); Alkaline Phosphatase 158 U/L (40-150); Anion Gap 13 mmol/L (10-20); BUN (Urea Nitrogen) 14 mg/dL (9.8-20.1); Bilirubin, Total 0.3 mg/dL (0.2-1.2); Calc. Creatinine Clearance 92 mL/min (70-130); Calcium 9.8 mg/dL (7.8-10.44); Carbon Dioxide 27 mmol/L (23-31); Chloride 104 mmol/L (98-107); Estimated GFR-MDRD Greater than 90; Globulin 3.9 g/dL (2.4-3.5); Glucose 121 mg/dL (83-110); Protein, Total 7.2 g/dL (6.0-8.3); Sodium 140 mmol/L (136-145)
[2019-05-18 05:54] LABS: #Basophils 0.1 thou/uL (0.0-0.2); #Eosinphils 0.4 thou/uL (0.0-0.7); #Lymphocytes 1.5 thou/uL (1.20-3.40); #Monocytes 0.7 thou/uL (0.11-0.59); #Neutrophils 6.1 thou/uL (1.40-6.50); %Basophils 1.1 % (0.0-1.0); %Eosinophils 4.5 % (0.0-10.0); %Lymphocytes 16.9 % (21.0-51.0); %Monocytes 8.1 % (0.0-10.0); %Neutrophils 69.4 % (42.0-75.0); Hemoglobin 9.7 g/dL (12.0-16.0); Hypochromia SLIGHT = 6-15 cells (100X) (0-5/hpf); MDiff Complete? YES; Mean Corpuscular HGB CONC 30.4 g/dL (32.0-36.0); Mean Corpuscular Hemoglobin 21.9 pg (27.0-31.0); Mean Corpuscular Volume 71.8 fL (78.0-98.0); Mean Platelet Volume 5.4 fL (7.4-10.4); Microcytosis SLIGHT = 6-15 cells (100X) (0-5/hpf); Platelet Count 435 thou/uL (130-400); Platelet Morphology Comment Appears Increased; RBC Distribution Width 14.7 % (11.5-14.5); Red Blood Cell (RBC) Count 4.44 mill/uL (4.20-5.40); White Blood Cell (WBC) Count 8.8 thou/uL (4.8-10.8)
[2019-05-18] MEDS: Lantus 1000 UNITS/10 ML VIAL SC SCH ×2 (08:47→22:12)
[2019-05-18] MEDS: Ferrous Sulfate 325 MG TAB PO SCH (08:48)
[2019-05-18] MEDS: NIFEdipine XL 30 MG TAB PO SCH (08:48)
[2019-05-18] MEDS: Ascorbic Acid 500 mg Chewable Tablet PO SCH (08:49)
[2019-05-18] MEDS: Acetaminophen ER (8hr) 650 MG TAB PO SCH ×2 (08:49→22:14)
[2019-05-18] MEDS: Famotidine 20 MG TAB PO SCH ×2 (08:51→22:14)
[2019-05-18] MEDS: Saccharomyces boulardii 250 MG CAP PO SCH (08:51)
[2019-05-18] MEDS: Senokot S 8.6-50 MG TAB PO SCH ×2 (08:51→22:14)
[2019-05-18] MEDS: Metoprolol Tartrate 25 MG TAB PO SCH ×2 (08:52→22:17)
[2019-05-18] MEDS: Aspirin 81 mg Enteric Coated Tablet PO SCH (08:52)
[2019-05-18] MEDS: Folic Acid 1 MG TAB PO SCH (08:52)
[2019-05-18] MEDS: Lisinopril 10 MG TAB PO SCH ×2 (08:52→22:14)
[2019-05-18] MEDS: Multivit, Therapeutic 1 TAB PO SCH (08:52)
[2019-05-18] MEDS: glipiZIDE 5 MG TAB PO SCH (08:53)
[2019-05-18] MEDS: Naproxen 500 MG TAB PO SCH ×2 (08:53→16:09)
[2019-05-18] MEDS: Vancomycin HCl 750 MG in Sodium Chloride 0.9% 250 ML 250 ML IVPB SCH ×2 (11:12→23:48)
[2019-05-18] MEDS: HYDROcodone/Acetaminophen 10/325 mg Tablet PO PRN ×2 (16:07→22:28)
[2019-05-18 17:35] LABS: CRP (Inflammatory) 4.41 mg/dL (= or < 0.5)
[2019-05-19] MEDS: HYDROcodone/Acetaminophen 10/325 mg Tablet PO PRN (08:53)
[2019-05-19] MEDS: Senokot S 8.6-50 MG TAB PO SCH ×2 (08:55→23:37)
[2019-05-19] MEDS: Saccharomyces boulardii 250 MG CAP PO SCH (08:55)
[2019-05-19] MEDS: Lisinopril 10 MG TAB PO SCH ×2 (08:55→22:33)
[2019-05-19] MEDS: Ferrous Sulfate 325 MG TAB PO SCH (08:56)
[2019-05-19] MEDS: Famotidine 20 MG TAB PO SCH ×2 (08:56→22:31)
[2019-05-19] MEDS: Multivit, Therapeutic 1 TAB PO SCH (08:56)
[2019-05-19] MEDS: NIFEdipine XL 30 MG TAB PO SCH (08:56)
[2019-05-19] MEDS: Acetaminophen ER (8hr) 650 MG TAB PO SCH ×2 (08:56→22:31)
[2019-05-19] MEDS: Naproxen 500 MG TAB PO SCH ×2 (08:57→16:52)
[2019-05-19] MEDS: Aspirin 81 mg Enteric Coated Tablet PO SCH (08:57)
[2019-05-19] MEDS: Metoprolol Tartrate 25 MG TAB PO SCH ×2 (08:57→22:31)
[2019-05-19] MEDS: Folic Acid 1 MG TAB PO SCH (08:57)
[2019-05-19] MEDS: Ascorbic Acid 500 mg Chewable Tablet PO SCH (08:58)
[2019-05-19] MEDS: glipiZIDE 5 MG TAB PO SCH (09:07)
[2019-05-19] MEDS: Lantus 1000 UNITS/10 ML VIAL SC SCH ×2 (09:08→22:31)
[2019-05-19] MEDS: Vancomycin HCl 750 MG in Sodium Chloride 0.9% 250 ML 250 ML IVPB SCH ×2 (11:19→22:32)
[2019-05-20] MEDS: HYDROcodone/Acetaminophen 10/325 mg Tablet PO PRN (06:22)
[2019-05-20] MEDS: Ferrous Sulfate 325 MG TAB PO SCH (11:04)
[2019-05-20] MEDS: Saccharomyces boulardii 250 MG CAP PO SCH (11:04)
[2019-05-20] MEDS: Famotidine 20 MG TAB PO SCH ×2 (11:04→22:43)
[2019-05-20] MEDS: Metoprolol Tartrate 25 MG TAB PO SCH ×2 (11:04→22:43)
[2019-05-20] MEDS: Naproxen 500 MG TAB PO SCH ×2 (11:04→18:10)
[2019-05-20] MEDS: Acetaminophen ER (8hr) 650 MG TAB PO SCH ×2 (11:04→22:42)
[2019-05-20] MEDS: NIFEdipine XL 30 MG TAB PO SCH (11:05)
[2019-05-20] MEDS: glipiZIDE 5 MG TAB PO SCH (11:05)
[2019-05-20] MEDS: Ascorbic Acid 500 mg Chewable Tablet PO SCH (11:09)
[2019-05-20] MEDS: Folic Acid 1 MG TAB PO SCH ×2 (11:09→11:10)
[2019-05-20] MEDS: Multivit, Therapeutic 1 TAB PO SCH (11:10)
[2019-05-20] MEDS: Aspirin 81 mg Enteric Coated Tablet PO SCH (11:10)
[2019-05-20] MEDS: Senokot S 8.6-50 MG TAB PO SCH ×2 (11:10→22:47)
[2019-05-20] MEDS: Lisinopril 10 MG TAB PO SCH ×2 (11:10→22:43)
[2019-05-20] MEDS: Lantus 1000 UNITS/10 ML VIAL SC SCH ×2 (11:14→22:47)
[2019-05-20] MEDS: Vancomycin HCl 750 MG in Sodium Chloride 0.9% 250 ML 250 ML IVPB SCH ×2 (11:15→22:46)
[2019-05-21] MEDS: HYDROcodone/Acetaminophen 10/325 mg Tablet PO PRN ×2 (03:57→14:49)
[2019-05-21] MEDS: Naproxen 500 MG TAB PO SCH ×2 (07:52→17:03)
[2019-05-21] MEDS: Ferrous Sulfate 325 MG TAB PO SCH (07:52)
[2019-05-21] MEDS: glipiZIDE 5 MG TAB PO SCH (07:53)
[2019-05-21] MEDS: Famotidine 20 MG TAB PO SCH ×2 (10:53→23:11)
[2019-05-21] MEDS: NIFEdipine XL 30 MG TAB PO SCH (10:54)
[2019-05-21] MEDS: Acetaminophen ER (8hr) 650 MG TAB PO SCH ×2 (10:54→23:11)
[2019-05-21] MEDS: Saccharomyces boulardii 250 MG CAP PO SCH (10:54)
[2019-05-21] MEDS: Aspirin 81 mg Enteric Coated Tablet PO SCH (10:54)
[2019-05-21] MEDS: Metoprolol Tartrate 25 MG TAB PO SCH ×2 (10:56→23:12)
[2019-05-21] MEDS: Folic Acid 1 MG TAB PO SCH (10:56)
[2019-05-21] MEDS: Lisinopril 10 MG TAB PO SCH ×2 (10:56→23:12)
[2019-05-21] MEDS: Multivit, Therapeutic 1 TAB PO SCH (10:57)
[2019-05-21] MEDS: Vancomycin HCl 750 MG in Sodium Chloride 0.9% 250 ML 250 ML IVPB SCH ×2 (10:57→23:13)
[2019-05-21] MEDS: Ascorbic Acid 500 mg Chewable Tablet PO SCH (10:57)
[2019-05-21] MEDS: Lantus 1000 UNITS/10 ML VIAL SC SCH ×2 (10:57→23:12)
[2019-05-21] MEDS: Senokot S 8.6-50 MG TAB PO SCH ×2 (10:58→23:14)
[2019-05-22] MEDS: HYDROcodone/Acetaminophen 10/325 mg Tablet PO PRN ×2 (00:06→13:31)
[2019-05-22] MEDS: Acetaminophen ER (8hr) 650 MG TAB PO SCH ×2 (09:24→22:45)
[2019-05-22] MEDS: Ferrous Sulfate 325 MG TAB PO SCH (09:25)
[2019-05-22] MEDS: NIFEdipine XL 30 MG TAB PO SCH (09:26)
[2019-05-22] MEDS: Aspirin 81 mg Enteric Coated Tablet PO SCH (09:26)
[2019-05-22] MEDS: Lisinopril 10 MG TAB PO SCH ×2 (09:27→22:48)
[2019-05-22] MEDS: Famotidine 20 MG TAB PO SCH ×2 (09:27→22:45)
[2019-05-22] MEDS: Naproxen 500 MG TAB PO SCH ×2 (09:28→17:34)
[2019-05-22] MEDS: Metoprolol Tartrate 25 MG TAB PO SCH ×2 (09:28→22:48)
[2019-05-22] MEDS: Saccharomyces boulardii 250 MG CAP PO SCH (09:28)
[2019-05-22] MEDS: Senokot S 8.6-50 MG TAB PO SCH ×2 (09:28→22:48)
[2019-05-22] MEDS: Folic Acid 1 MG TAB PO SCH (09:28)
[2019-05-22] MEDS: Ascorbic Acid 500 mg Chewable Tablet PO SCH (09:28)
[2019-05-22] MEDS: Multivit, Therapeutic 1 TAB PO SCH (09:28)
[2019-05-22] MEDS: glipiZIDE 5 MG TAB PO SCH (09:28)
[2019-05-22] MEDS: Lantus 1000 UNITS/10 ML VIAL SC SCH ×3 (09:38→23:58)
[2019-05-22 11:02] LABS: Vancomycin, Trough 18.8 ug/mL
[2019-05-22] MEDS: Vancomycin HCl 750 MG in Sodium Chloride 0.9% 250 ML 250 ML IVPB SCH ×2 (12:00→22:55)
[2019-05-23] MEDS: HYDROcodone/Acetaminophen 10/325 mg Tablet PO PRN ×3 (05:21→23:12)
[2019-05-23] MEDS: Lantus 1000 UNITS/10 ML VIAL SC SCH ×2 (08:36→22:25)
[2019-05-23] MEDS: Famotidine 20 MG TAB PO SCH ×2 (08:38→22:26)
[2019-05-23] MEDS: Ferrous Sulfate 325 MG TAB PO SCH (08:38)
[2019-05-23] MEDS: Aspirin 81 mg Enteric Coated Tablet PO SCH (08:38)
[2019-05-23] MEDS: NIFEdipine XL 30 MG TAB PO SCH (08:39)
[2019-05-23] MEDS: Saccharomyces boulardii 250 MG CAP PO SCH (08:39)
[2019-05-23] MEDS: Acetaminophen ER (8hr) 650 MG TAB PO SCH ×2 (08:39→22:25)
[2019-05-23] MEDS: Multivit, Therapeutic 1 TAB PO SCH (08:40)
[2019-05-23] MEDS: Lisinopril 10 MG TAB PO SCH ×2 (08:40→22:26)
[2019-05-23] MEDS: Metoprolol Tartrate 25 MG TAB PO SCH ×2 (08:40→22:29)
[2019-05-23] MEDS: Senokot S 8.6-50 MG TAB PO SCH ×2 (08:41→22:29)
[2019-05-23] MEDS: Folic Acid 1 MG TAB PO SCH (08:41)
[2019-05-23] MEDS: Naproxen 500 MG TAB PO SCH ×2 (08:43→16:39)
[2019-05-23] MEDS: Ascorbic Acid 500 mg Chewable Tablet PO SCH (08:44)
[2019-05-23] MEDS: Vancomycin HCl 750 MG in Sodium Chloride 0.9% 250 ML 250 ML IVPB SCH ×2 (11:02→23:13)
[2019-05-23 22:44] LABS: Vancomycin, Trough 21.8 ug/mL
[2019-05-24] MEDS: HYDROcodone/Acetaminophen 10/325 mg Tablet PO PRN ×2 (05:28→10:35)
[2019-05-24] MEDS: Lantus 1000 UNITS/10 ML VIAL SC SCH ×2 (09:14→22:23)
[2019-05-24] MEDS: Ferrous Sulfate 325 MG TAB PO SCH (09:16)
[2019-05-24] MEDS: Acetaminophen ER (8hr) 650 MG TAB PO SCH ×2 (09:16→22:22)
[2019-05-24] MEDS: Saccharomyces boulardii 250 MG CAP PO SCH (09:16)
[2019-05-24] MEDS: Aspirin 81 mg Enteric Coated Tablet PO SCH (09:17)
[2019-05-24] MEDS: Naproxen 500 MG TAB PO SCH ×2 (09:17→16:27)
[2019-05-24] MEDS: Metoprolol Tartrate 25 MG TAB PO SCH ×2 (09:17→22:22)
[2019-05-24] MEDS: Senokot S 8.6-50 MG TAB PO SCH ×2 (09:17→22:23)
[2019-05-24] MEDS: Famotidine 20 MG TAB PO SCH ×2 (09:18→22:21)
[2019-05-24] MEDS: Ascorbic Acid 500 mg Chewable Tablet PO SCH (09:18)
[2019-05-24] MEDS: Multivit, Therapeutic 1 TAB PO SCH (09:18)
[2019-05-24] MEDS: Lisinopril 10 MG TAB PO SCH ×2 (09:18→22:22)
[2019-05-24] MEDS: NIFEdipine XL 30 MG TAB PO SCH (09:19)
[2019-05-24] MEDS: Folic Acid 1 MG TAB PO SCH (09:19)
[2019-05-24] MEDS: Vancomycin HCl 500 MG in Sodium Chloride 0.9% 100 ML IVPB SCH ×2 (10:58→22:33)
[2019-05-24 10:59] VITALS: BMI 32.5
[2019-05-25 05:04] LABS: ALT (SGPT) 15 U/L (8-55); AST (SGOT) 16 U/L (5-34); Albumin 3.5 g/dL (3.4-4.8); Alkaline Phosphatase 134 U/L (40-150); Anion Gap 15 mmol/L (10-20); BUN (Urea Nitrogen) 16 mg/dL (9.8-20.1); Bilirubin, Total 0.3 mg/dL (0.2-1.2); Calc. Creatinine Clearance 94 mL/min (70-130); Calcium 10.1 mg/dL (7.8-10.44); Carbon Dioxide 25 mmol/L (23-31); Chloride 104 mmol/L (98-107); Estimated GFR-MDRD Greater than 90; Globulin 3.8 g/dL (2.4-3.5); Glucose 128 mg/dL (83-110); Protein, Total 7.3 g/dL (6.0-8.3); Sodium 140 mmol/L (136-145)
[2019-05-25 05:55] LABS: Red Blood Cell (RBC) Count 4.47 mill/uL (4.20-5.40); White Blood Cell (WBC) Count 7.3 thou/uL (4.8-10.8)
[2019-05-25 05:56] LABS: %Basophils 2.4 % (0.0-1.0); %Eosinophils 5.8 % (0.0-10.0); %Lymphocytes 19.8 % (21.0-51.0); %Monocytes 10.4 % (0.0-10.0); %Neutrophils 61.5 % (42.0-75.0); Mean Corpuscular HGB CONC 30.5 g/dL (32.0-36.0); Mean Corpuscular Hemoglobin 22.3 pg (27.0-31.0); Mean Corpuscular Volume 72.9 fL (78.0-98.0); Mean Platelet Volume 5.7 fL (7.4-10.4); Platelet Count 404 thou/uL (130-400); RBC Distribution Width 16.1 % (11.5-14.5)
[2019-05-25 05:57] LABS: #Basophils 0.2 thou/uL (0.0-0.2); #Eosinphils 0.4 thou/uL (0.0-0.7); #Lymphocytes 1.4 thou/uL (1.20-3.40); #Monocytes 0.8 thou/uL (0.11-0.59); #Neutrophils 4.5 thou/uL (1.40-6.50)
[2019-05-25 06:00] LABS: Microcytosis SLIGHT = 6-15 cells (100X) (0-5/hpf)
[2019-05-25 06:01] LABS: Platelet Morphology Comment Appears Increased; Small Platelets SLIGHT
[2019-05-25] MEDS: Lantus 1000 UNITS/10 ML VIAL SC SCH ×2 (09:32→21:07)
[2019-05-25] MEDS: Naproxen 500 MG TAB PO SCH ×2 (09:35→18:12)
[2019-05-25] MEDS: HYDROcodone/Acetaminophen 10/325 mg Tablet PO PRN ×2 (09:35→15:19)
[2019-05-25] MEDS: Acetaminophen ER (8hr) 650 MG TAB PO SCH ×2 (09:35→21:06)
[2019-05-25] MEDS: Multivit, Therapeutic 1 TAB PO SCH (09:39)
[2019-05-25] MEDS: Saccharomyces boulardii 250 MG CAP PO SCH (09:40)
[2019-05-25] MEDS: Folic Acid 1 MG TAB PO SCH (09:40)
[2019-05-25] MEDS: Famotidine 20 MG TAB PO SCH ×2 (09:40→21:07)
[2019-05-25] MEDS: NIFEdipine XL 30 MG TAB PO SCH (09:40)
[2019-05-25] MEDS: Metoprolol Tartrate 25 MG TAB PO SCH ×2 (09:40→21:07)
[2019-05-25] MEDS: Ferrous Sulfate 325 MG TAB PO SCH (09:40)
[2019-05-25] MEDS: Senokot S 8.6-50 MG TAB PO SCH ×2 (09:44→21:12)
[2019-05-25] MEDS: Lisinopril 10 MG TAB PO SCH ×2 (09:44→21:07)
[2019-05-25] MEDS: Ascorbic Acid 500 mg Chewable Tablet PO SCH (09:45)
[2019-05-25] MEDS: Aspirin 81 mg Enteric Coated Tablet PO SCH (09:45)
[2019-05-25] MEDS: Polyethylene Glycol 3350 17 GM Packet PO PRN (09:45)
[2019-05-25] MEDS: Vancomycin HCl 500 MG in Sodium Chloride 0.9% 100 ML IVPB SCH ×2 (11:41→23:20)
[2019-05-25 22:17] LABS: Vancomycin, Trough 18.3 ug/mL
[2019-05-26] MEDS: Lantus 1000 UNITS/10 ML VIAL SC SCH ×2 (08:28→21:17)
[2019-05-26] MEDS: Acetaminophen ER (8hr) 650 MG TAB PO SCH ×2 (08:31→21:18)
[2019-05-26] MEDS: Saccharomyces boulardii 250 MG CAP PO SCH (08:31)
[2019-05-26] MEDS: HYDROcodone/Acetaminophen 10/325 mg Tablet PO PRN (08:32)
[2019-05-26] MEDS: Senokot S 8.6-50 MG TAB PO SCH ×2 (08:32→23:23)
[2019-05-26] MEDS: NIFEdipine XL 30 MG TAB PO SCH (08:33)
[2019-05-26] MEDS: Folic Acid 1 MG TAB PO SCH (08:33)
[2019-05-26] MEDS: Ferrous Sulfate 325 MG TAB PO SCH (08:33)
[2019-05-26] MEDS: Famotidine 20 MG TAB PO SCH ×2 (08:33→21:18)
[2019-05-26] MEDS: Ascorbic Acid 500 mg Chewable Tablet PO SCH (08:34)
[2019-05-26] MEDS: Metoprolol Tartrate 25 MG TAB PO SCH ×2 (08:34→21:18)
[2019-05-26] MEDS: Aspirin 81 mg Enteric Coated Tablet PO SCH (08:34)
[2019-05-26] MEDS: Lisinopril 10 MG TAB PO SCH ×2 (08:34→21:18)
[2019-05-26] MEDS: Naproxen 500 MG TAB PO SCH ×2 (08:35→17:38)
[2019-05-26] MEDS: Multivit, Therapeutic 1 TAB PO SCH (08:35)
[2019-05-26] MEDS: Vancomycin HCl 500 MG in Sodium Chloride 0.9% 100 ML IVPB SCH ×2 (12:36→23:25)
[2019-05-27] MEDS: Ascorbic Acid 500 mg Chewable Tablet PO SCH (09:42)
[2019-05-27] MEDS: Lantus 1000 UNITS/10 ML VIAL SC SCH ×2 (09:43→22:14)
[2019-05-27] MEDS: Senokot S 8.6-50 MG TAB PO SCH ×2 (09:45→21:59)
[2019-05-27] MEDS: Ferrous Sulfate 325 MG TAB PO SCH (09:45)
[2019-05-27] MEDS: Folic Acid 1 MG TAB PO SCH (09:46)
[2019-05-27] MEDS: Aspirin 81 mg Enteric Coated Tablet PO SCH (09:46)
[2019-05-27] MEDS: Acetaminophen ER (8hr) 650 MG TAB PO SCH ×2 (09:46→21:59)
[2019-05-27] MEDS: NIFEdipine XL 30 MG TAB PO SCH (09:46)
[2019-05-27] MEDS: Famotidine 20 MG TAB PO SCH ×2 (09:47→21:59)
[2019-05-27] MEDS: Multivit, Therapeutic 1 TAB PO SCH (09:47)
[2019-05-27] MEDS: Naproxen 500 MG TAB PO SCH ×2 (09:48→18:51)
[2019-05-27] MEDS: Metoprolol Tartrate 25 MG TAB PO SCH ×2 (09:48→21:59)
[2019-05-27] MEDS: Saccharomyces boulardii 250 MG CAP PO SCH (09:48)
[2019-05-27] MEDS: Lisinopril 10 MG TAB PO SCH ×2 (09:48→22:00)
[2019-05-27 10:26] LABS: Vancomycin, Trough 13.8 ug/mL
[2019-05-27] MEDS: Vancomycin HCl 750 MG in Sodium Chloride 0.9% 250 ML 250 ML IVPB SCH (13:26)
[2019-05-27] MEDS: HYDROcodone/Acetaminophen 10/325 mg Tablet PO PRN (13:26)
[2019-05-27] MEDS: Vancomycin HCl 500 MG in Sodium Chloride 0.9% 100 ML IVPB SCH (14:01)
[2019-05-28] MEDS: Vancomycin HCl 750 MG in Sodium Chloride 0.9% 250 ML 250 ML IVPB SCH ×2 (00:37→13:27)
[2019-05-28] MEDS: Lantus 1000 UNITS/10 ML VIAL SC SCH ×2 (09:45→21:15)
[2019-05-28] MEDS: NIFEdipine XL 30 MG TAB PO SCH (09:48)
[2019-05-28] MEDS: Ascorbic Acid 500 mg Chewable Tablet PO SCH (09:48)
[2019-05-28] MEDS: Naproxen 500 MG TAB PO SCH ×2 (09:48→17:07)
[2019-05-28] MEDS: Multivit, Therapeutic 1 TAB PO SCH (09:48)
[2019-05-28] MEDS: Lisinopril 10 MG TAB PO SCH ×2 (09:49→21:18)
[2019-05-28] MEDS: Saccharomyces boulardii 250 MG CAP PO SCH (09:49)
[2019-05-28] MEDS: Ferrous Sulfate 325 MG TAB PO SCH (09:49)
[2019-05-28] MEDS: Aspirin 81 mg Enteric Coated Tablet PO SCH (09:49)
[2019-05-28] MEDS: Metoprolol Tartrate 25 MG TAB PO SCH ×2 (09:49→21:13)
[2019-05-28] MEDS: Senokot S 8.6-50 MG TAB PO SCH ×2 (09:49→21:11)
[2019-05-28] MEDS: Famotidine 20 MG TAB PO SCH ×2 (09:49→21:12)
[2019-05-28] MEDS: Acetaminophen ER (8hr) 650 MG TAB PO SCH ×2 (09:50→21:12)
[2019-05-28] MEDS: Folic Acid 1 MG TAB PO SCH (09:50)
[2019-05-29 00:33] LABS: Vancomycin, Trough 15.1 ug/mL
[2019-05-29] MEDS: Vancomycin HCl 750 MG in Sodium Chloride 0.9% 250 ML 250 ML IVPB SCH ×2 (01:31→11:42)
[2019-05-29] MEDS: Ferrous Sulfate 325 MG TAB PO SCH (08:54)
[2019-05-29] MEDS: Naproxen 500 MG TAB PO SCH ×2 (08:54→16:53)
[2019-05-29] MEDS: Multivit, Therapeutic 1 TAB PO SCH (08:55)
[2019-05-29] MEDS: Acetaminophen ER (8hr) 650 MG TAB PO SCH ×2 (08:55→21:32)
[2019-05-29] MEDS: Famotidine 20 MG TAB PO SCH ×2 (08:55→21:32)
[2019-05-29] MEDS: Ascorbic Acid 500 mg Chewable Tablet PO SCH (08:55)
[2019-05-29] MEDS: Senokot S 8.6-50 MG TAB PO SCH ×2 (08:56→23:30)
[2019-05-29] MEDS: Aspirin 81 mg Enteric Coated Tablet PO SCH (08:56)
[2019-05-29] MEDS: NIFEdipine XL 30 MG TAB PO SCH (08:56)
[2019-05-29] MEDS: Lisinopril 10 MG TAB PO SCH ×2 (08:56→21:33)
[2019-05-29] MEDS: Folic Acid 1 MG TAB PO SCH (08:57)
[2019-05-29] MEDS: Saccharomyces boulardii 250 MG CAP PO SCH (08:57)
[2019-05-29] MEDS: HYDROcodone/Acetaminophen 10/325 mg Tablet PO PRN ×2 (08:57→13:35)
[2019-05-29] MEDS: Metoprolol Tartrate 25 MG TAB PO SCH ×2 (08:57→21:34)
[2019-05-29] MEDS: Lantus 1000 UNITS/10 ML VIAL SC SCH ×2 (08:59→21:32)
[2019-05-30] MEDS: Vancomycin HCl 750 MG in Sodium Chloride 0.9% 250 ML 250 ML IVPB SCH ×2 (01:11→13:13)
[2019-05-30] MEDS: NIFEdipine XL 30 MG TAB PO SCH (08:44)
[2019-05-30] MEDS: Folic Acid 1 MG TAB PO SCH (08:44)
[2019-05-30] MEDS: Acetaminophen ER (8hr) 650 MG TAB PO SCH ×2 (08:46→21:02)
[2019-05-30] MEDS: Aspirin 81 mg Enteric Coated Tablet PO SCH (08:46)
[2019-05-30] MEDS: Ferrous Sulfate 325 MG TAB PO SCH (08:47)
[2019-05-30] MEDS: Saccharomyces boulardii 250 MG CAP PO SCH (08:47)
[2019-05-30] MEDS: Lisinopril 10 MG TAB PO SCH ×2 (08:47→21:03)
[2019-05-30] MEDS: Metoprolol Tartrate 25 MG TAB PO SCH ×2 (08:47→21:03)
[2019-05-30] MEDS: Famotidine 20 MG TAB PO SCH ×2 (08:47→21:03)
[2019-05-30] MEDS: Ascorbic Acid 500 mg Chewable Tablet PO SCH (08:48)
[2019-05-30] MEDS: Naproxen 500 MG TAB PO SCH ×2 (08:48→17:14)
[2019-05-30] MEDS: Senokot S 8.6-50 MG TAB PO SCH ×2 (08:48→21:03)
[2019-05-30] MEDS: Multivit, Therapeutic 1 TAB PO SCH (08:48)
[2019-05-30] MEDS: Lantus 1000 UNITS/10 ML VIAL SC SCH ×2 (08:59→21:02)
[2019-05-30 14:56] LABS: Bilirubin Negative (Negative); Blood, Urine Moderate (Negative); Clarity Cloudy (Clear); Glucose, Urine (Dipstick) Negative (Negative); Leukocyte Small (Negative); Nitrite Negative (Negative); Protein, Urine (Dipstick) 100 mg/dL (Neg-Trace)
[2019-05-30 15:01] LABS: Bacteria/HPF 4+ HPF (None Seen); WBC/HPF 21-50 HPF (0-3)
[2019-05-30 15:05] LABS: Urine Culture Reflex No No
[2019-05-31 00:09] LABS: Vancomycin, Trough 17.6 ug/mL
[2019-05-31] MEDS: Vancomycin HCl 750 MG in Sodium Chloride 0.9% 250 ML 250 ML IVPB SCH ×2 (01:31→13:42)
[2019-05-31] MEDS: Saccharomyces boulardii 250 MG CAP PO SCH (09:19)
[2019-05-31] MEDS: Ferrous Sulfate 325 MG TAB PO SCH (09:19)
[2019-05-31] MEDS: Ascorbic Acid 500 mg Chewable Tablet PO SCH (09:19)
[2019-05-31] MEDS: Aspirin 81 mg Enteric Coated Tablet PO SCH (09:19)
[2019-05-31] MEDS: Famotidine 20 MG TAB PO SCH ×2 (09:19→21:43)
[2019-05-31] MEDS: Metoprolol Tartrate 25 MG TAB PO SCH ×2 (09:20→21:43)
[2019-05-31] MEDS: Acetaminophen ER (8hr) 650 MG TAB PO SCH ×2 (09:20→21:43)
[2019-05-31] MEDS: Senokot S 8.6-50 MG TAB PO SCH ×2 (09:20→21:44)
[2019-05-31] MEDS: Folic Acid 1 MG TAB PO SCH (09:20)
[2019-05-31] MEDS: NIFEdipine XL 30 MG TAB PO SCH (09:21)
[2019-05-31] MEDS: Lisinopril 10 MG TAB PO SCH ×2 (09:22→21:43)
[2019-05-31] MEDS: Naproxen 500 MG TAB PO SCH ×2 (09:22→17:31)
[2019-05-31] MEDS: Multivit, Therapeutic 1 TAB PO SCH (09:23)
[2019-05-31] MEDS: Lantus 1000 UNITS/10 ML VIAL SC SCH ×2 (09:31→21:42)
[2019-06-01] MEDS: Vancomycin HCl 750 MG in Sodium Chloride 0.9% 250 ML 250 ML IVPB SCH (01:00)
[2019-06-01 05:59] LABS: ALT (SGPT) 15 U/L (8-55); AST (SGOT) 17 U/L (5-34); Albumin 3.5 g/dL (3.4-4.8); Alkaline Phosphatase 126 U/L (40-150); Anion Gap 16 mmol/L (10-20); BUN (Urea Nitrogen) 14 mg/dL (9.8-20.1); Bilirubin, Total 0.3 mg/dL (0.2-1.2); Calc. Creatinine Clearance 110 mL/min (70-130); Calcium 10.1 mg/dL (7.8-10.44); Carbon Dioxide 24 mmol/L (23-31); Chloride 105 mmol/L (98-107); Estimated GFR-MDRD Greater than 90; Globulin 3.6 g/dL (2.4-3.5); Glucose 81 mg/dL (83-110); Potassium 3.7 mmol/L (3.5-5.1); Protein, Total 7.1 g/dL (6.0-8.3); Sodium 141 mmol/L (136-145)
[2019-06-01 06:11] LABS: %Basophils 2.9 % (0.0-1.0); %Lymphocytes 29.9 % (21.0-51.0); %Monocytes 11.8 % (0.0-10.0); %Neutrophils 48.4 % (42.0-75.0); Anisocytosis SLIGHT = 6-15 cells (100X) (0-5/hpf); Hemoglobin 9.9 g/dL (12.0-16.0); Hypochromia SLIGHT = 6-15 cells (100X) (0-5/hpf); MDiff Complete? YES; Mean Corpuscular HGB CONC 30.2 g/dL (32.0-36.0); Mean Corpuscular Hemoglobin 21.8 pg (27.0-31.0); Mean Corpuscular Volume 72.1 fL (78.0-98.0); Mean Platelet Volume 6.1 fL (7.4-10.4); Microcytosis SLIGHT = 6-15 cells (100X) (0-5/hpf); Platelet Count 348 thou/uL (130-400); Platelet Morphology Comment Appears Adequate; RBC Distribution Width 16.7 % (11.5-14.5); Red Blood Cell (RBC) Count 4.53 mill/uL (4.20-5.40); White Blood Cell (WBC) Count 5.4 thou/uL (4.8-10.8)
[2019-06-01] MEDS: Lantus 1000 UNITS/10 ML VIAL SC SCH ×2 (08:47→21:59)
[2019-06-01] MEDS: Senokot S 8.6-50 MG TAB PO SCH ×2 (08:47→09:55)
[2019-06-01] MEDS: Aspirin 81 mg Enteric Coated Tablet PO SCH (08:53)
[2019-06-01] MEDS: NIFEdipine XL 30 MG TAB PO SCH (08:53)
[2019-06-01] MEDS: Famotidine 20 MG TAB PO SCH ×2 (08:53→21:57)
[2019-06-01] MEDS: Saccharomyces boulardii 250 MG CAP PO SCH (08:54)
[2019-06-01] MEDS: Acetaminophen ER (8hr) 650 MG TAB PO SCH ×2 (08:54→21:57)
[2019-06-01] MEDS: Lisinopril 10 MG TAB PO SCH ×2 (08:54→21:57)
[2019-06-01] MEDS: Ferrous Sulfate 325 MG TAB PO SCH (08:54)
[2019-06-01] MEDS: Metoprolol Tartrate 25 MG TAB PO SCH ×2 (08:54→21:57)
[2019-06-01] MEDS: Ascorbic Acid 500 mg Chewable Tablet PO SCH (08:55)
[2019-06-01] MEDS: Naproxen 500 MG TAB PO SCH ×2 (08:55→17:11)
[2019-06-01] MEDS: Multivit, Therapeutic 1 TAB PO SCH (08:55)
[2019-06-01] MEDS: Folic Acid 1 MG TAB PO SCH (08:55)
[2019-06-01] MEDS: HYDROcodone/Acetaminophen 10/325 mg Tablet PO PRN (18:59)
[2019-06-02 05:31] VITALS: TEMP 98.7
[2019-06-02] MEDS: Lantus 1000 UNITS/10 ML VIAL SC SCH (09:43)
[2019-06-02] MEDS: Acetaminophen ER (8hr) 650 MG TAB PO SCH (09:46)
[2019-06-02] MEDS: Naproxen 500 MG TAB PO SCH (09:46)
[2019-06-02] MEDS: Multivit, Therapeutic 1 TAB PO SCH (09:46)
[2019-06-02] MEDS: Saccharomyces boulardii 250 MG CAP PO SCH (09:46)
[2019-06-02] MEDS: Ferrous Sulfate 325 MG TAB PO SCH (09:47)
[2019-06-02] MEDS: Aspirin 81 mg Enteric Coated Tablet PO SCH (09:47)
[2019-06-02] MEDS: NIFEdipine XL 30 MG TAB PO SCH (09:47)
[2019-06-02] MEDS: Ascorbic Acid 500 mg Chewable Tablet PO SCH (09:48)
[2019-06-02] MEDS: Senokot S 8.6-50 MG TAB PO SCH (09:48)
[2019-06-02] MEDS: Lisinopril 10 MG TAB PO SCH (09:49)
[2019-06-02] MEDS: Famotidine 20 MG TAB PO SCH (09:49)
[2019-06-02] MEDS: Folic Acid 1 MG TAB PO SCH (09:49)
[2019-06-02] MEDS: Metoprolol Tartrate 25 MG TAB PO SCH (09:49)
[2019-06-02 09:54] VITALS: BP 174/74
--- NOTE | 2019-06-03 03:25 | DIS ---
DATE OF ADMISSION: 04/28/2019 DATE OF DISCHARGE: 06/02/2019 ADMISSION DIAGNOSES: Bacterial endocarditis, methicillin-resistant Staphylococcus aureus bacteremia, and physical deconditioning. SECONDARY DIAGNOSES: Low back pain, hypertension, type 2 diabetes mellitus, diastolic dysfunction, urinary retention, and iron deficiency anemia. PROCEDURES: 05/17/2019, lumbar x-ray showed [id number] degenerative changes present throughout the spine. No acute bony findings. Very large calcified uterine fibroids. HOSPITAL COURSE: A 79-year-old female transitioned to our facility to participate with Physical Therapy and Occupational Therapy and complete a course of IV vancomycin through a PICC line status post admission at [facility] in [place], where she initially presented with complaints of abdominal pain and ulcer of the right heel. Workup there revealed the patient to be septic and she underwent debridement of her heel ulcer; culture of this revealed MRSA. Her urine culture also grew MRSA and Aerococcus urinae. Both Infectious Disease and Cardiology were consulted and she underwent transesophageal echocardiogram, which showed thickened aortic valve leaflets with a small echogenic mass suggestive of vegetation. A PICC line was placed and the patient was started on vancomycin under the direction of Dr. Barragan with instruction to continue the antibiotics through May 31. Also during her stay, the patient notably had urinary retention for which a Islas catheter was placed. She has been advised to follow up with Urology as an outpatient accordingly. The patient had her labs trended during her stay here and they trended down appropriately as far as her inflammatory markers and white blood cell count. The patient's Islas catheter was changed during her stay as appropriate. She received her vancomycin via her PICC line as directed by Infectious Disease. As far as the physical deconditioning, the patient was mostly noncompliant working with Physical Therapy and Occupational Therapy, and often complaining of low back pain for which she was treated with pain medication and her imaging obtained as above. Secondary to her noncompliance, she did develop a stage II sacral decubitus ulcer, which has been improving with wound care therapy. Due to the patient's residual deconditioning, it has been decided for her to transition to [facility] for further care. As stated, she will need to follow up with Urology and this has been arranged with appointment set on June 06, 2019. Beyond this, the patient has completed her antibiotic course and has normal vitals and is appropriate for discharge to [facility]. DISPOSITION: The patient was discharged to [facility] for further care. She is to follow up with Urology on June 06, 2019. DISCHARGE MEDICATIONS: Include: 1. Vitamin C 500 mg daily. 2. Aspirin 81 mg daily. 3. Dulcolax 10 mg per rectum daily as needed. 4. Cymbalta 20 mg daily. 5. Famotidine 20 mg b.i.d. 6. Ferrous sulfate 325 mg daily. 7. Folic acid 1 mg daily. 8. Lantus 10 units twice a day. 9. Lisinopril 20 mg twice a day. 10. Metoprolol 25 mg twice a day. 11. Daily multivitamin. 12. Nifedical XL 60 mg daily. Job ID: [id number] [facility]
== END 2019-06-02 15:35 | DRG 871 ==
LOC: BURMED 18:15
PROVIDERS: ADMIT Family Medicine; ATTEND Family Medicine
DX: A41.02 Sepsis due to Methicillin resistant Staphylococcus aureus (principal); I33.0 Acute and subacute infective endocarditis; L97.419 Non-pressure chronic ulcer of right heel and midfoot with unspecified severity; K92.1 Melena; N39.0 Urinary tract infection, site not specified; L60.3 Nail dystrophy; R33.9 Retention of urine, unspecified; I10 Essential (primary) hypertension; E11.9 Type 2 diabetes mellitus without complications; E53.8 Deficiency of other specified B group vitamins; D50.9 Iron deficiency anemia, unspecified; R53.81 Other malaise; M54.5 Low back pain; L89.152 Pressure ulcer of sacral region, stage 2; Z79.4 Long term (current) use of insulin; Z91.19 Patient's noncompliance with other medical treatment and regimen
CPT/HCPCS: 36415; 36416; 72100; 80048; 80053; 80202; 81001; 85025; 85652; 86140; 87480; 87491; 87510; 87591; 87660; 97602; J1642; J1815; J3370; J3490; J7050